=== PATIENT | female | born 1955 | race Caucasian/White ===

== ENCOUNTER 2021-08-03 21:29 | Emergency (ER) | payer OTHER, MEDICARE, SELFPAY ==
[2021-08-03 21:36] VITALS: BP 163/86; PULSE 112; RESP 20; TEMP 37; O2SAT 100; BMI 29.3
--- NOTE | 2021-08-03 21:49 | CT_ITS ---
STUDY: CT CHEST WITH CONTRAST REASON FOR EXAM: Female, 66 years old. Trauma, pain RADIATION DOSAGE (If Supplied By Facility): CTDIvol = ( 11.74 ) mGy, DLP = ( 449.39 ) mGycm TECHNIQUE: Transaxial imaging was performed following intravenous administration of IV 100mL Isovue-300. Multiplanar coronal and sagittal images were reformatted. Individualized dose optimization techniques were used for this CT. COMPARISON: None. FINDINGS: The lungs are normal. There is no demonstrated pleural abnormality. Normal heart and pericardium. Normal mediastinum. Normal hilar regions. Normal enhanced pulmonary arteries. Normal aorta arch and descending thoracic aorta. T4 superior endplate fracture. Gallbladder calculus without wall thickening or distention. CT/Chest WITH Contrast IMPRESSION: T4 superior endplate fracture of uncertain acuity. No acute abnormal finding of the lungs or heart. Electronically Signed: Kaveh Osman MD at 0:06 EDT Tel , Service support ,
--- NOTE | 2021-08-03 21:49 | CT_ITS ---
STUDY: CT CERVICAL SPINE WITHOUT CONTRAST REASON FOR EXAM: Female, 66 years old. Trauma RADIATION DOSAGE (If Supplied By Facility): CTDIvol = ( 17.97 ) mGy, DLP = ( 330.91 ) mGycm TECHNIQUE: High resolution transaxial imaging was performed without contrast material. Sagittal and coronal images were reconstructed. Individualized dose optimization techniques were used for this CT. COMPARISON: None FINDINGS: Normal craniovertebral junction. Normal anterior atlantoaxial articulation. Normal odontoid process. Normal cervical lordosis. Normal vertebral bodies and posterior osseous elements. Degenerative disc and endplate disease in the mid to lower cervical spine without severe spinal canal or neural foraminal stenosis. Normal visualized soft tissue structures. CT/Spine Cervical without Contras IMPRESSION: No acute fracture or dislocation of the cervical spine. Electronically Signed: Kaveh Osman MD at 23:58 EDT Tel , Service support ,
--- NOTE | 2021-08-03 21:49 | CT_ITS ---
STUDY: CT BRAIN WITHOUT CONTRAST REASON FOR EXAM: Female, 66 years old. Trauma RADIATION DOSAGE (If Supplied By Facility): CTDIvol = ( 44.99 ) mGy, DLP = ( 846.73 ) mGycm TECHNIQUE: Transaxial CT imaging of the brain was performed without administration of intravenous contrast material. Individualized dose optimization techniques were used for this CT. COMPARISON: No relevant priors. FINDINGS: Normal soft tissue structures. Normal calvarium. Normal size ventricles and extra-axial spaces for the patient''s age. Normal white matter tracts of the cerebral hemispheres. Normal basal ganglia and thalami. Normal brainstem. Normal cerebellum. There is no intracranial hemorrhage. There are no findings of an acute ischemic infarction. Normal visualized paranasal sinuses. CT/Brain/Head without Contrast IMPRESSION: No acute abnormal intracranial finding. Electronically Signed: Kaveh Osman MD at 23:47 EDT Tel , Service support ,
--- NOTE | 2021-08-03 21:50 | EKG12_ITS ---
Test Reason : CHEST PRESSURE Blood Pressure : / mmHG Vent. Rate : 106 BPM Atrial Rate : 106 BPM P-R Int : 140 ms QRS Dur : 076 ms QT Int : 340 ms P-R-T Axes : 039 017 059 degrees QTc Int : 451 ms Sinus tachycardia Otherwise normal ECG Confirmed by MICHAEL BEAL, DMITRY ([id number]), editor magazine [employer] ([id number]) on 08/08/2021 8:42:04 AM Referred By: BB Confirmed By:DMITRY RODRIGUEZ MD
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
--- NOTE | 2021-08-03 21:55 | RAD_ITS ---
STUDY: X-RAY - RIGHT WRIST REASON FOR EXAM: Female, 66 years old. Trauma, pain TECHNIQUE: The view(s) of the wrist were obtained. COMPARISON: None. FINDINGS: Distal radial metaphysis impacted fracture with volar subluxation of the distal fragment. Associated soft tissue swelling without radiopaque foreign body or soft tissue gas. Degenerative DJD most prominent at the first CMC joint. Joint spaces are otherwise maintained. RAD/Wrist min 3 Views IMPRESSION: Distal radius fracture. Electronically Signed: Kaveh Osman MD at 22:38 EDT Tel , Service support ,
[2021-08-03 22:12] LABS: Absolute Lymphocyte Count 0.85 X10^3/uL (0.83-4.51); Absolute Neutrophil Count 23.7 X10^3/uL (2.0-7.7); Basophil# 0.07 X10^3/uL; Basophil% 0.3 % (0-1); Hematocrit 43.9 % (37-47); Lymphocyte # 0.85 X10^3/ul (0.83-4.51); Lymphocyte % 3.2 % (19-41); Mean Corp Hgb Conc 34.2 g/dL (32-36); Mean Corpuscular Hgb 30.6 pg (27.0-32.0); Mean Corpuscular Volume 89.6 fL (81-99); Mean Platelet Vol. 9.4 fl (6.2-12.0); Monocyte# 1.26 X10^3/uL; Monocyte% 4.8 % (0-10); NRBC Flagged by Analyzer 0 % (0-5); Neutrophil # 23.74 X10^3/uL (2.7-7.7); Neutrophil % 90.6 % (47-70); POSITIVE DIFFERENTIAL YES; Platelet Count 216 K/mm3 (150-450); RBC Distribution Width SD 39.4 fl (35.1-43.9); White Blood Count 26.2 K/mm3 (4.4-11.0)
[2021-08-03] MEDS: Tetracaine 0.5% Ophthalmic Bottle 1 DRP LEFT EYE (22:12)
[2021-08-03 22:13] LABS: Differential Indicated SCAN CRITERIA MET
--- NOTE | 2021-08-03 22:15 | RAD_ITS ---
STUDY: X-RAY CHEST REASON FOR EXAM: Female, 66 years old. Trauma TECHNIQUE: Portable, upright, AP chest radiograph COMPARISON: None. FINDINGS: The lungs are clear and expanded. There is no demonstrated pleural abnormality. Normal size heart. Normal mediastinum and [place]. Normal visualized pulmonary arteries. Normal visualized aortic arch and descending thoracic aorta. There is no demonstrated abnormality of the visualized soft tissue structures of the upper abdomen. RAD/Chest 1 View (Portable) IMPRESSION: No acute abnormal cardiopulmonary finding. Electronically Signed: Kaveh Osman MD at 22:39 EDT Tel , Service support ,
[2021-08-03 22:30] VITALS: BP 133/66; PULSE 98; RESP 16; O2SAT 97
[2021-08-03 22:46] LABS: ALB/GLOB Ratio 1.3 RATIO (0.9-2.4); AST(SGOT) 100 U/L (15-37); Alanine Aminotransfer ALT/SGPT 104 U/L (13-56); Albumin, Serum 4.1 g/dL (3.2-5.0); Alkaline Phosphatase 88 U/L (45-117); Anion Gap 10 (5-15); BUN 19 mg/dL (7-18); BUN/Creat Ratio 24.9 RATIO (10-20); Calcium,Total 8.3 mg/dL (8.5-10.1); Chloride 108 mmol/L (98-107); Creatinine, Serum 0.76 mg/dL (0.55-1.02); EST Glomerular Filtration Rate 80 mL/min (>60); Est Glom Filt Rate - Afr Amer 97 mL/min (>60); Estimated Creatinine Clearance 47.14 ml/min; Globulin 3.1 g/dL (2.2-4.2); Glucose 149 mg/dL (74-106); Potassium 4.1 mmol/L (3.5-5.1); Protein, Total 7.2 g/dL (6.4-8.2); Sodium Level 140 mmol/L (136-145); Troponin-I HS 8 pg/mL (3.0-54.0)
[2021-08-03 23:00] VITALS: BP 151/78; PULSE 93; RESP 16; O2SAT 96
[2021-08-03] MEDS: 0.9% Normal Saline 1,000 ML 1000 ML IV (23:03)
[2021-08-03 23:04] LABS: Differential Comment SCANNED
--- NOTE | 2021-08-04 00:04 | RAD_ITS ---
STUDY: X-RAY - RIGHT WRIST REASON FOR EXAM: Female, 66 years old. Post reduction TECHNIQUE: 2 view(s) of the wrist were obtained. COMPARISON: 2 hours earlier RAD/Wrist 2 Views IMPRESSION: Mildly improved alignment of distal radius fracture. Overlying splint material obscures fine detail. Electronically Signed: Kaveh Osman MD at 1:13 EDT Tel , Service support ,
[2021-08-04] MEDS: Lidocaine 1% (20 ml mdv) 20 ML Vial 10 ML INFILT (00:38)
[2021-08-04 00:39] VITALS: BP 138/78; PULSE 92; RESP 16; O2SAT 98
[2021-08-04] MEDS: Erythromycin Base 1 OPTH.TUBE 1 APPLIC LEFT EYE (00:52)
[2021-08-04] MEDS: oxyCODONE 5 MG Tablet 10 MG PO (01:08)
[2021-08-04 02:51] VITALS: BP 141/74; PULSE 79; RESP 16; O2SAT 97
== END 2021-08-04 02:51 | disposition home or self-care (01) ==
PROVIDERS: Emergency Provider Emergency Medicine
DX: S52.501A Unspecified fracture of the lower end of right radius, initial encounter for closed fracture (principal); S05.02XA Injury of conjunctiva and corneal abrasion without foreign body, left eye, initial encounter; S80.12XA Contusion of left lower leg, initial encounter; S80.11XA Contusion of right lower leg, initial encounter; S40.212A Abrasion of left shoulder, initial encounter; S40.012A Contusion of left shoulder, initial encounter; S09.90XA Unspecified injury of head, initial encounter; V49.9XXA Car occupant (driver) (passenger) injured in unspecified traffic accident, initial encounter; Y93.9 Activity, unspecified; Y92.9 Unspecified place or not applicable; E03.9 Hypothyroidism, unspecified; Z79.899 Other long term (current) drug therapy
CPT/HCPCS: 25605; 70450; 71045; 71260; 72125; 73100; 73110; 80053; 82077; 84484; 85025; 93005; 96360; 96361; 99285; J7030; Q9967; A4216